=== PATIENT | male | born 1975 | race Caucasian/White ===

== ENCOUNTER 2017-01-13 20:32 | Emergency (ER) | payer BC, OTHER ==
[~2017-01-13] VITALS: Ht 170.2 cm; Wt 75.0 kg
[~2017-01-13 20:32] MED LIST: Z.0.NO CURRENT MEDS
[2017-01-13 20:48] VITALS: BP 169/102; PULSE 96; RESP 18; TEMP 98; O2SAT 99
[2017-01-13] MEDS ORDERED: PRIL10PO (20:48)
[2017-01-13 21:12] LABS: AUTOMATED NEUTROPHIL # 5.1 TH/MM3 (1.8-7.7); BASOPHIL # 0.1 TH/MM3 (0-0.2); BASOPHIL % 1.1 % (0.0-2.0); EOSINOPHIL # 0.6 TH/MM3 (0-0.4); EOSINOPHIL % 7.2 % (0.0-4.0); HEMATOCRIT 46.5 % (39.0-51.0); HEMO FLAGS DIFF FINAL; LYMPHOCYTE # 1.7 TH/MM3 (1.0-4.8); MEAN CORPUSCULAR HEMOGLOBIN 32.4 PG (27.0-34.0); MEAN CORPUSCULAR HGB CONC 34.5 % (32.0-36.0); MONO % 5.4 % (0.0-8.0); NEUT % 65.3 % (16.0-70.0); PLATELET COUNT 271 TH/MM3 (150-450); RED BLOOD COUNT 4.95 MIL/MM3 (4.50-5.90); RED CELL DISTRIBUTION WIDTH 12.4 % (11.6-17.2); WHITE BLOOD COUNT 7.9 TH/MM3 (4.0-11.0)
[2017-01-13 21:37] LABS: ALT (GPT) 33 U/L (12-78)
[2017-01-13 21:39] LABS: ALKALINE PHOSPHATASE 84 U/L (45-117); TOTAL BILIRUBIN ADULT 0.3 MG/DL (0.2-1.0)
[2017-01-13 21:45] LABS: ANION GAP 9 MEQ/L (5-15); AST (GOT) 14 U/L (15-37); BICARBONATE 26.5 MEQ/L (21.0-32.0); BLOOD UREA NITROGEN 18 MG/DL (7-18); CHLORIDE 105 MEQ/L (98-107); GLOMERULAR FILTRATION RATE 77 ML/MIN (>89); POTASSIUM 3.3 MEQ/L (3.5-5.1); SODIUM (NA) 140 MEQ/L (136-145)
[2017-01-13 21:47] LABS: ALCOHOL 263 MG/DL (0-5)
[2017-01-13 22:05] VITALS: BP 164/109; PULSE 104; RESP 18; O2SAT 98
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
[2017-01-14 02:31] VITALS: BP 135/85; PULSE 84; RESP 18; O2SAT 98
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
[2017-01-14 10:00] VITALS: BP 135/85; TEMP 98
== END 2017-01-14 10:08 | disposition home or self-care (01) ==
LOC: NEPD 20:32 → NEPJ 01-14 10:08
DX: F43.25 Adjustment disorder with mixed disturbance of emotions and conduct (principal)
CPT/HCPCS: 80053; 80307; 85025; 99283